=== PATIENT | female | born 1955 | race Caucasian/White ===

== ENCOUNTER 2022-06-26 08:07 | Outpatient (CLI) | payer MEDICARE, SELFPAY ==
[2022-06-26 13:05] LABS: Alanine Aminotransferase 25 U/L (6-35); Albumin Level 4.7 g/dL (3.5-5.1); Alkaline Phosphatase 55 U/L (38-126); Anion Gap 7 mmol/L (8-16); Aspartate Amino Transferase 31 U/L (14-36); Bilirubin,Total 0.4 mg/dL (0.2-1.3); Blood Urea Nitrogen 42 mg/dL (7-17); Calcium 9.5 mg/dL (8.4-10.2); Carbon Dioxide 31 mmol/L (22-30); Chloride 100 mmol/L (98-107); Cholesterol 215 mg/dL (0-200); Estimated Glomerular Filt Rate 25; Glucose 100 mg/dL (65-110); HDL Direct 50 mg/dL; Potassium 4.2 mmol/L (3.4-5.0); Sodium 138 mmol/L (137-145); Triglycerides 147 mg/dL (<150)
[2022-06-26 13:10] LABS: Creatinine Urine 196.3 mg/dL
[2022-06-26 13:15] LABS: MALB Creatinine Ratio 8.3 mg/g (0-30); Microalbumin Urine Random 16.3 mg/L (0-16.7)
[2022-06-26 13:16] LABS: LDL Cholesterol Direct 110 mg/dL
[2022-06-26 13:19] LABS: Vitamin D 25 Hydroxy 57.3 ng/mL
[2022-06-26 13:36] LABS: Thyroid Stimulating Hormone 0.107 uIU/mL (0.465-4.680)
== END 2022-06-26 08:08 | disposition home or self-care (01) ==
LOC: ANHWCLAB 08:12
PROVIDERS: PCP Physician Assistant; Visit Provider Internal Medicine
DX: E11.9 Type 2 diabetes mellitus without complications (principal); Z79.899 Other long term (current) drug therapy
CPT/HCPCS: 36415; 80053; 80061; 82043; 82306; 84443

== ENCOUNTER 2022-06-28 15:48 | Outpatient (CLI) | payer MEDICARE, SELFPAY ==
[2022-06-28 17:01] LABS: Thyroid Stimulating Hormone 0.038 uIU/mL (0.465-4.680)
[2022-06-28 17:15] LABS: Free T4 Free Thyroxine 1.28 ng/mL (0.78-2.19)
[2022-07-01 07:35] LABS: Thyroid Peroxidase Antibodies 5 IU/mL (<9)
[2022-07-01 15:47] LABS: Thyrotropin Receptor Antibody <1.00 IU/L (<=2.00)
[2022-07-02 14:35] LABS: Thyroid Stimulating Immunoglob <89 % baseline (<140)
== END 2022-06-28 15:49 | disposition home or self-care (01) ==
PROVIDERS: PCP Physician Assistant; Visit Provider Internal Medicine
DX: R79.89 Other specified abnormal findings of blood chemistry (principal)
CPT/HCPCS: 36415; 83519; 84439; 84443; 84445; 86376

== ENCOUNTER 2022-08-28 08:37 | Outpatient (CLI) | payer MEDICARE, SELFPAY ==
--- NOTE | ~2022-08-28 | US_ITS ---
Renal-Bladder ultrasound Clinical History: Chronic kidney disease Technique: Real-time sonographic imaging of the kidneys and urinary bladder was performed. Findings: The right kidney measures 11.3 cm in length and the left kidney measures 11.0 cm. There is no hydronephrosis or renal calculus identified. Renal cortical echogenicity is within normal limits. No solid renal mass lesion is identified. The urinary bladder is collapsed, limiting evaluation. Impression: No significant abnormality of the kidneys. Collapsed urinary bladder limits evaluation. Reviewed, dictated and finalized at location M. Impression: No significant abnormality of the kidneys. Collapsed urinary bladder limits evaluation.
[2022-08-28 09:53] LABS: Albumin Level 4.3 g/dL (3.5-5.1); Anion Gap 6 mmol/L (8-16); Blood Urea Nitrogen 21 mg/dL (7-17); Calcium 9.4 mg/dL (8.4-10.2); Carbon Dioxide 33 mmol/L (22-30); Chloride 97 mmol/L (98-107); Estimated Glomerular Filt Rate 50; Glucose 140 mg/dL (65-110); Potassium 4.2 mmol/L (3.4-5.0); Sodium 136 mmol/L (137-145)
[2022-08-28 09:56] LABS: Creatinine Urine 70.3 mg/dL; Total Protein Urine Random 12 mg/dL; Ur Ttl Prot Creatinine Ratio 0.17 mg/mg (0-0.20)
[2022-08-28 10:01] LABS: Complement C3 151 mg/dL (88-165)
[2022-08-28 10:27] LABS: Eosinophil Urine None Seen % (None Seen)
[2022-08-28 10:28] LABS: Vitamin D 25 Hydroxy 70.1 ng/mL
[2022-08-30 23:08] LABS: Albumin 3.7 g/dL (3.8-4.8); Alpha 1 Globulin 0.3 g/dL (0.2-0.3); Alpha 2 Globulin 0.9 g/dL (0.5-0.9); Beta 1 Globulin 0.5 g/dL (0.4-0.6)
[2022-09-01 18:48] LABS: Anti Glomerular Basement Memb <1.0 AI (<1.0)
[2022-09-02 22:28] LABS: Creatinine, Random Urine 70 mg/dL (20-275); Total Protein/Creatinine Ratio 114 mg/g creat (24-184)
[2022-09-03 20:51] LABS: ANCA Screen Negative (Negative)
== END 2022-08-28 08:38 | disposition home or self-care (01) ==
PROVIDERS: Internal Medicine; PCP Physician Assistant; Visit Provider Internal Medicine Nephrology
DX: N18.4 Chronic kidney disease, stage 4 (severe) (principal); E11.22 Type 2 diabetes mellitus with diabetic chronic kidney disease; Z79.899 Other long term (current) drug therapy
CPT/HCPCS: 36415; 76775; 80069; 82306; 82570; 83520; 84155; 84156; 84165; 84166; 85999; 86036; 86038; 86160; 86225

== ENCOUNTER 2022-09-20 07:46 | Outpatient (CLI) | payer MEDICARE, SELFPAY ==
[2022-09-20 09:01] LABS: Free T4 Free Thyroxine 1.22 ng/mL (0.78-2.19)
[2022-09-20 09:04] LABS: Thyroid Stimulating Hormone 0.057 uIU/mL (0.465-4.680)
[2022-09-25 04:54] LABS: Triiodothyronine T3 Free 2.7 pg/mL (2.3-4.2)
== END 2022-09-20 07:47 | disposition home or self-care (01) ==
PROVIDERS: PCP Physician Assistant; Visit Provider Internal Medicine
DX: R79.89 Other specified abnormal findings of blood chemistry (principal)
CPT/HCPCS: 36415; 84439; 84443; 84481

== ENCOUNTER 2022-09-26 08:14 | Outpatient (CLI) | payer MEDICARE, SELFPAY ==
[2022-09-26 08:36] LABS: Basophils Percent Auto 0.5 % (0.2-1.2); Eosinophils Absolute Auto 0.3 K/mm3 (0-0.3); Eosinophils Percent Auto 3.4 % (0-4.4); Hematocrit 38.9 % (37.0-47.0); Hemoglobin 12.7 g/dL (12.0-15.0); Immature Granulocyte Absolute 0.03 K/mm3 (0.00-0.031); Immature Granulocyte Percent A 0.4 % (0-0.5); Lymphocytes Absolute Auto 2.39 K/mm3 (0.9-3.2); Lymphocytes Percent Auto 28.3 % (18.3-44.2); Mean Corpuscular HGB Conc 32.6 g/dl (32-36); Mean Corpuscular Hemoglobin 28.4 pg (26-34); Mean Platelet Volume 8.7 fl (7.4-10.4); Monocytes Absolute Auto 0.6 K/mm3 (0.1-0.6); Monocytes Percent Auto 7.4 % (2.6-8.5); Neutrophils Absolute Auto 5.1 K/mm3 (1.3-6.7); Platelet Count Result 338 k/mm3 (150-375); Red Blood Count 4.47 M/mm3 (4.2-5.4); Red Cell Distribution Width 12.7 % (11.5-14.5); White Blood Count 8.5 K/mm3 (4.5-10.0)
== END 2022-09-26 08:15 | disposition home or self-care (01) ==
LOC: ANHLAB 08:15
PROVIDERS: PCP Physician Assistant; Visit Provider Internal Medicine
DX: N18.4 Chronic kidney disease, stage 4 (severe) (principal)
CPT/HCPCS: 36415; 85025

== ENCOUNTER 2022-12-25 08:45 | Outpatient (CLI) | payer MEDICARE, SELFPAY ==
[2022-12-25 09:37] LABS: Thyroid Stimulating Hormone 0.033 uIU/mL (0.465-4.680)
[2022-12-25 09:40] LABS: Free T4 Free Thyroxine 1.45 ng/mL (0.78-2.19)
== END 2022-12-25 08:46 | disposition home or self-care (01) ==
PROVIDERS: PCP Physician Assistant; Visit Provider Internal Medicine
DX: R79.89 Other specified abnormal findings of blood chemistry (principal); E78.5 Hyperlipidemia, unspecified
CPT/HCPCS: 36415; 84439; 84443

== ENCOUNTER 2023-01-01 08:03 | Outpatient (CLI) | payer MEDICARE, SELFPAY ==
--- NOTE | ~2023-01-01 | NM_ITS ---
EXAMINATION: NM thyroid scan w uptake DATE: 01/02/2023 09:08 INDICATION: Abnormal thyroid function tests. COMPARISON: None. TECHNIQUE: 0.386 mCi I-123 was administered orally. Scintigraphic images of the thyroid gland were o btained at 24 hours. Thyroid uptake was calculated by the technologist. FINDINGS: The thyroid uptake is 16% (normal 10-30%), with the right lobe measuring 9% uptake and the left 7%. T here is no focal area of decreased or increased activity to suggest hypofunctioning or hyperfunctioni ng nodule. IMPRESSION: 1. Normal thyroid scintigraphy and 24-hour iodine uptake. Reviewed, dictated and finalized at location L.
== END 2023-01-01 08:04 | disposition home or self-care (01) ==
PROVIDERS: PCP Physician Assistant; Visit Provider Internal Medicine
DX: R79.89 Other specified abnormal findings of blood chemistry (principal)
CPT/HCPCS: 78014; A9516

== ENCOUNTER 2023-01-24 16:06 | Outpatient (CLI) | payer MEDICARE, SELFPAY ==
[2023-01-24 17:27] LABS: Anion Gap 5 mmol/L (8-16); Blood Urea Nitrogen 25 mg/dL (7-17); Calcium 8.8 mg/dL (8.4-10.2); Carbon Dioxide 32 mmol/L (22-30); Chloride 98 mmol/L (98-107); Estimated Glomerular Filt Rate 56; Glucose 171 mg/dL (65-110); Phosphorus 4.3 mg/dL (2.5-4.5); Potassium 3.4 mmol/L (3.4-5.0); Sodium 135 mmol/L (137-145)
[2023-01-24 17:36] LABS: Creatinine Urine 54.9 mg/dL; Total Protein Urine Random 6 mg/dL; Ur Ttl Prot Creatinine Ratio 0.11 mg/mg (0-0.20)
[2023-01-24 17:41] LABS: Parathyroid Intact 78.3 pg/mL (7.5-53.5)
== END 2023-01-24 16:07 | disposition home or self-care (01) ==
PROVIDERS: PCP Physician Assistant; Visit Provider Internal Medicine Nephrology
DX: E11.22 Type 2 diabetes mellitus with diabetic chronic kidney disease (principal); N18.31 Chronic kidney disease, stage 3a
CPT/HCPCS: 36415; 80069; 82570; 83970; 84156

== ENCOUNTER 2023-03-27 12:19 | Outpatient (CLI) | payer MEDICARE, SELFPAY ==
[2023-03-27 13:21] LABS: Free T4 Free Thyroxine 1.15 ng/mL (0.78-2.19)
== END 2023-03-27 12:20 | disposition home or self-care (01) ==
LOC: ANHLAB 12:20
PROVIDERS: PCP Physician Assistant; Visit Provider Internal Medicine
DX: R79.89 Other specified abnormal findings of blood chemistry (principal); E11.9 Type 2 diabetes mellitus without complications
CPT/HCPCS: 36415; 84439; 84443

== ENCOUNTER → 2023-04-18 10:25 | Outpatient (CLI) | payer MEDICARE, SELFPAY ==
--- NOTE | ~2023-04-18 | DEXA_ITS ---
Bone Density Report Name: KATE DEL REAL Age: 68 Sex: Female Ethnicity: White Date of : 1955 Indication: postmenopausal; screening for osteoporosis; height loss; prior fracture; end stage renal disease; hysterectomy; Referring Provider: LJ RANGEL Study: Bone densitometry was performed. Exam Date: April 18, 2023 Accession number: [id number] Bone Density: Region BMD T-score Z-score Classification AP Spine (L1-L4) 1.177 1.2 3.0 Normal Femoral Neck (Left) 0.708 -1.3 0.3 Osteopenia Total Hip (Left) 1.014 0.6 1.9 Normal Femoral Neck (Right) 0.706 -1.3 0.3 Osteopenia Total Hip (Right) 1.008 0.5 1.8 Normal Total Hip Mean 1.011 0.6 1.9 Normal World Health Organization criteria for BMD impression classify patients as: Normal (T-score at or above -1.0), Osteopenia (T-score between -1.0 and -2.5), or Osteoporosis (T-score at or below -2.5). 10-year Fracture Risk(1): Major Osteoporotic Fracture 13% Hip Fracture 1.2% Reported Risk Factors: [place] (), Neck BMD=0.706, BMI=37.4, previous fracture (1) FRAX(R) Version 3.08. Fracture probability calculated for an untreated patient. Fracture probability may be lower if the patient has received treatment. Clinical Information Provided by Patient: Has had a low trauma fracture Has used the following medications: Vitamin D, MTV Has the following medical conditions: End stage renal disease, Hysterectomy Patient maximum height was 62 Menopause Age: 22 No regular weight bearing exercise Drinks caffeinated beverages Onset of menses at age 18 Number of children 2 Impression: The patient has low bone mass, based on the Left Femoral Neck T-score. The patient has an estimated ten-year risk of hip fracture of 1.2% and an estimated ten-year risk of major fracture of 13%, based on the WHO FRAX algorithm. The patient has risk factors, including: previous fracture. Discussion: BONE DENSITY IS LOW AT ONE OR MORE SKELETAL SITES. This patient's lowest T-score is low at one or more skeletal sites. It meets the World Health Organization's (WHO) criteria for ?low bone mass? (T-score between -1.0 and -2.5). The patient's 10-year risk of fracture as calculated by FRAX is less than the threshold where pharmacological therapy is recommended by the National Osteoporosis Foundation (NOF). However, all treatment decisions require clinical judgment and consideration of individual patient factors, including patient preferences, comorbidities, previous drug use, risk factors not captured in the FRAX model (e.g., frailty, falls, vitamin D deficiency, increased bone turnover, interval significant decline in bone density) and possible under or overestimation of fracture risk by FRAX. The patient should follow a healthful lifestyle (good nutrition with adequate calciu
== END ==
PROVIDERS: PCP Internal Medicine; Visit Provider Internal Medicine
DX: M81.0 Age-related osteoporosis without current pathological fracture (principal); M85.89 Other specified disorders of bone density and structure, multiple sites
CPT/HCPCS: 77080

== ENCOUNTER 2023-06-03 08:04 | Outpatient (CLI) | payer MEDICARE, SELFPAY ==
[2023-06-03 08:31] LABS: Creatinine Urine 204.8 mg/dL; Total Protein Urine Random 8 mg/dL; Ur Ttl Prot Creatinine Ratio 0.04 mg/mg (0-0.20)
[2023-06-03 08:34] LABS: Albumin Level 4.4 g/dL (3.5-5.1); Anion Gap 9 mmol/L (8-16); Blood Urea Nitrogen 22 mg/dL (7-17); Calcium 10.7 mg/dL (8.4-10.2); Carbon Dioxide 33 mmol/L (22-30); Chloride 94 mmol/L (98-107); Estimated Glomerular Filt Rate 45; Glucose 211 mg/dL (65-110); Phosphorus 4.9 mg/dL (2.5-4.5); Potassium 4.2 mmol/L (3.4-5.0); Sodium 136 mmol/L (137-145)
== END 2023-06-03 08:05 | disposition home or self-care (01) ==
PROVIDERS: PCP Internal Medicine; Visit Provider Internal Medicine Nephrology
DX: E11.22 Type 2 diabetes mellitus with diabetic chronic kidney disease (principal); I12.9 Hypertensive chronic kidney disease with stage 1 through stage 4 chronic kidney disease, or unspecified chronic kidney disease; N18.31 Chronic kidney disease, stage 3a
CPT/HCPCS: 36415; 80069; 82570; 84156

== ENCOUNTER → 2023-07-04 06:58 | Outpatient (CLI) | payer MEDICARE, SELFPAY ==
--- NOTE | ~2023-07-04 | MM_ITS ---
EXAMINATION: MM screening morena BI w daisy HISTORY: Screening TECHNIQUE: Craniocaudal and mediolateral oblique 3-D tomosynthesis images were obtained and synthetic 2-D images were generated. CAD analysis was submitted and interpreted. COMPARISON: No prior mammogram is available for comparison at this institution. BREAST PARENCHYMAL COMPOSITION: There are scattered areas of fibroglandular density. FINDINGS: There is no evidence of suspicious mass, calcification, or architectural distortion to sugg est malignancy in either breast. There has been no suspicious interval change. IMPRESSION: 1. No mammographic evidence of malignancy. 2. Recommend routine screening mammography in one year. BI-RADS Category 1: Negative Reviewed, dictated and finalized at location A. CTURAL RIGGER
== END ==
PROVIDERS: PCP Obstetrics & Gynecology; Visit Provider Obstetrics & Gynecology
DX: Z12.31 Encounter for screening mammogram for malignant neoplasm of breast (principal)
CPT/HCPCS: 77063; 77067

== ENCOUNTER 2023-09-29 08:20 | Outpatient (CLI) | payer MEDICARE, SELFPAY ==
[2023-09-29 08:55] LABS: Albumin Level 4.3 g/dL (3.5-5.1); Anion Gap 6 mmol/L (4-12); Blood Urea Nitrogen 23 mg/dL (7-17); Calcium 9.8 mg/dL (8.4-10.2); Carbon Dioxide 32 mmol/L (22-30); Chloride 100 mmol/L (98-107); Estimated Glomerular Filt Rate 45; Glucose 127 mg/dL (65-110); Phosphorus 4.1 mg/dL (2.5-4.5); Potassium 4.4 mmol/L (3.4-5.0); Sodium 138 mmol/L (137-145)
[2023-09-29 09:07] LABS: Parathyroid Intact 18.5 pg/mL (7.5-53.5)
[2023-09-29 09:14] LABS: Total Protein Urine Random < 5 mg/dL; Ur Ttl Prot Creatinine Ratio < 0.06 mg/mg (0-0.20)
== END 2023-09-29 08:21 | disposition home or self-care (01) ==
LOC: ANHLAB 08:24
PROVIDERS: PCP Obstetrics & Gynecology; Visit Provider Internal Medicine Nephrology
DX: I12.9 Hypertensive chronic kidney disease with stage 1 through stage 4 chronic kidney disease, or unspecified chronic kidney disease (principal); N18.31 Chronic kidney disease, stage 3a; E11.22 Type 2 diabetes mellitus with diabetic chronic kidney disease; N25.81 Secondary hyperparathyroidism of renal origin; E55.9 Vitamin D deficiency, unspecified
CPT/HCPCS: 36415; 80069; 82306; 82570; 83970; 84156

== ENCOUNTER 2023-10-04 08:30 | Outpatient (CLI) | payer MEDICARE, SELFPAY ==
[2023-10-04 09:14] LABS: Cholesterol 220 mg/dL (0-200); HDL Direct 54 mg/dL; Triglycerides 148 mg/dL (<150)
[2023-10-04 09:26] LABS: LDL Cholesterol Direct 131 mg/dL
[2023-10-04 09:47] LABS: Free T4 Free Thyroxine 1.17 ng/mL (0.78-2.19)
== END 2023-10-04 08:31 | disposition home or self-care (01) ==
PROVIDERS: PCP Physician Assistant; Visit Provider Internal Medicine
DX: E11.22 Type 2 diabetes mellitus with diabetic chronic kidney disease (principal)
CPT/HCPCS: 36415; 80061; 84439; 84443

== ENCOUNTER 2024-01-30 08:05 | Outpatient (CLI) | payer MEDICARE, SELFPAY ==
[2024-01-30 09:20] LABS: Albumin Level 4.4 g/dL (3.5-5.1); Anion Gap 9 mmol/L (4-12); Blood Urea Nitrogen 28 mg/dL (7-17); Calcium 9.4 mg/dL (8.4-10.2); Carbon Dioxide 33 mmol/L (22-30); Chloride 96 mmol/L (98-107); Estimated Glomerular Filt Rate 41; Glucose 114 mg/dL (65-110); Phosphorus 4.3 mg/dL (2.5-4.5); Potassium 3.9 mmol/L (3.4-5.0); Sodium 138 mmol/L (137-145)
[2024-01-30 10:04] LABS: Creatinine Urine 102.6 mg/dL
[2024-01-30 10:09] LABS: Total Protein Urine Random < 5 mg/dL; Ur Ttl Prot Creatinine Ratio < 0.05 mg/mg (0-0.20)
== END 2024-01-30 08:06 | disposition home or self-care (01) ==
PROVIDERS: PCP Physician Assistant; Visit Provider Internal Medicine Nephrology
DX: I12.9 Hypertensive chronic kidney disease with stage 1 through stage 4 chronic kidney disease, or unspecified chronic kidney disease (principal); E11.22 Type 2 diabetes mellitus with diabetic chronic kidney disease; N18.31 Chronic kidney disease, stage 3a
CPT/HCPCS: 36415; 80069; 82570; 84156

== ENCOUNTER 2024-07-30 08:25 | Outpatient (CLI) | payer MEDICARE, SELFPAY ==
[2024-07-30 09:07] LABS: Albumin Level 4.8 g/dL (3.5-5.1); Anion Gap 13 mmol/L (4-12); Blood Urea Nitrogen 31 mg/dL (7-17); Calcium 10.7 mg/dL (8.4-10.2); Carbon Dioxide 29 mmol/L (22-30); Chloride 97 mmol/L (98-107); Cholesterol 184 mg/dL (0-200); Estimated Glomerular Filt Rate 38; Glucose 134 mg/dL (65-110); HDL Direct 71 mg/dL; Phosphorus 3.6 mg/dL (2.5-4.5); Potassium 3.7 mmol/L (3.4-5.0); Sodium 139 mmol/L (137-145); Triglycerides 159 mg/dL (<150)
[2024-07-30 09:18] LABS: LDL Cholesterol Direct 72 mg/dL
[2024-07-30 09:23] LABS: Free T4 Free Thyroxine 1.32 ng/dL (0.78-2.19); Vitamin D 25 Hydroxy 61.2 ng/mL
[2024-07-30 09:45] LABS: Total Protein Urine Random 9 mg/dL
[2024-07-30 09:50] LABS: Creatinine Urine 72.3 mg/dL; Ur Ttl Prot Creatinine Ratio 0.12 mg/mg (0-0.20)
[2024-07-30 15:01] LABS: Parathyroid Intact < 14.5 pg/mL (14.5-75.2)
== END 2024-07-30 08:26 | disposition home or self-care (01) ==
PROVIDERS: Internal Medicine; PCP Physician Assistant; Referring Provider Psychiatry & Neurology Neurology; Visit Provider Internal Medicine Nephrology
DX: E78.5 Hyperlipidemia, unspecified (principal); E05.90 Thyrotoxicosis, unspecified without thyrotoxic crisis or storm; E11.22 Type 2 diabetes mellitus with diabetic chronic kidney disease; I12.9 Hypertensive chronic kidney disease with stage 1 through stage 4 chronic kidney disease, or unspecified chronic kidney disease; N18.32 Chronic kidney disease, stage 3b; N25.81 Secondary hyperparathyroidism of renal origin; E55.9 Vitamin D deficiency, unspecified; E66.9 Obesity, unspecified; Z71.3 Dietary counseling and surveillance
CPT/HCPCS: 36415; 80061; 80069; 82306; 82570; 83970; 84156; 84439; 84443

== ENCOUNTER 2024-09-27 14:16 | Outpatient (CLI) | payer MEDICARE, SELFPAY ==
--- NOTE | ~2024-09-27 | MM_ITS ---
EXAMINATION: MM screening morena BI w daisy HISTORY: Screening mammogram TECHNIQUE: Craniocaudal and mediolateral oblique 3-D tomosynthesis images were obtained and synthetic 2-D images were generated. CAD analysis was submitted and interpreted. COMPARISON: No prior mammogram is available for comparison at this institution. BREAST PARENCHYMAL COMPOSITION:Not Dense. There are scattered areas of fibroglandular density. FINDINGS: No suspicious mass, calcification, or architectural distortion are identified in either maryanne ast to suggest malignancy. There has been no suspicious interval change. IMPRESSION: No mammographic evidence of malignancy. Recommend routine screening mammography in one year. BI-RADS Category 1: Negative Reviewed, dictated and finalized at location .
== END 2024-09-27 14:17 | disposition home or self-care (01) ==
PROVIDERS: PCP Physician Assistant; Visit Provider Obstetrics & Gynecology
DX: Z12.31 Encounter for screening mammogram for malignant neoplasm of breast (principal)
CPT/HCPCS: 77063; 77067

== ENCOUNTER 2025-01-26 11:26 | Outpatient (CLI) | payer MEDICARE, SELFPAY ==
[2025-01-26 12:36] LABS: Total Protein Urine Random 6 mg/dL; Ur Ttl Prot Creatinine Ratio 0.07 mg/mg (0-0.20)
[2025-01-26 12:46] LABS: Alanine Aminotransferase 21 U/L (6-35); Albumin Level 4.5 g/dL (3.5-5.1); Alkaline Phosphatase 68 U/L (38-126); Anion Gap 8 mmol/L (4-12); Aspartate Amino Transferase 31 U/L (14-36); Bilirubin,Total 0.4 mg/dL (0.2-1.3); Blood Urea Nitrogen 32 mg/dL (7-17); Calcium 10.0 mg/dL (8.4-10.2); Carbon Dioxide 31 mmol/L (22-30); Chloride 99 mmol/L (98-107); Estimated Glomerular Filt Rate 37; Glucose 155 mg/dL (65-110); Potassium 4.1 mmol/L (3.4-5.0); Sodium 138 mmol/L (137-145); Total Protein 7.9 g/dL (6.3-8.2)
[2025-01-26 13:03] LABS: Free T4 Free Thyroxine 1.26 ng/dL (0.78-2.19)
[2025-01-26 13:18] LABS: Thyroid Stimulating Hormone 1.950 uIU/mL (0.465-4.680)
== END 2025-01-26 11:27 | disposition home or self-care (01) ==
PROVIDERS: PCP Physician Assistant; Referring Provider Internal Medicine; Visit Provider Internal Medicine Nephrology
DX: E05.90 Thyrotoxicosis, unspecified without thyrotoxic crisis or storm (principal); I10 Essential (primary) hypertension; R79.89 Other specified abnormal findings of blood chemistry; E78.5 Hyperlipidemia, unspecified; E11.22 Type 2 diabetes mellitus with diabetic chronic kidney disease; E66.9 Obesity, unspecified; Z71.3 Dietary counseling and surveillance; I12.9 Hypertensive chronic kidney disease with stage 1 through stage 4 chronic kidney disease, or unspecified chronic kidney disease; N18.32 Chronic kidney disease, stage 3b
CPT/HCPCS: 36415; 80053; 82570; 84100; 84156; 84439; 84443